=== PATIENT | female | born 1985 ===

== ENCOUNTER 2017-07-26 14:50 | Emergency (ER) | payer OTHER ==
[2017-07-26 14:53] VITALS: BMI 36.3
[2017-07-26 14:57] VITALS: RESP 18; TEMP 98.5; O2SAT 97
[2017-07-26 15:56] VITALS: BP 118/74; PULSE 94
--- NOTE | 2017-07-26 16:25 | ED PDOC ---
Arrival/HPI - General Historian: Patient - General Chief Complaint: Eye Problem Time Seen by Provider: 07/26/17 15:48 - History of Present Illness Narrative History of Present Illness (Text): 07/26/17 16:09 32yr old female, presents today with left eye redness, pruritis and irritation. Pt states she has history of allergies to cats, dogs, pollen, etc and is getting allergy shots. Pt states since she became her allergies have been horrible. pt states she woke up today with itchy, tearing eye. pt denies blurry vision. denies fever/chills. denies trauma or injury. pt states she has been trying to avoid rubbing her eyes. (Cynthia Jung) Past Medical History - Provider Review Nursing Documentation Reviewed: Yes - Travel History Have you recently traveled outside [place] w/in the past 3 mons?: No - Infectious Disease Hx of Infectious Diseases: None - Tetanus Immunization Tetanus Immunization: Up to Date - Past Medical History Past Medical History: No Previous - Pulmonary Hx Asthma: Yes - Psychiatric Hx Depression: Yes Hx Emotional Abuse: No Hx Physical Abuse: No Hx Substance Use: No Other/Comment: ADD - Surgical History Hx Section: Yes (x2) - Anesthesia Hx Anesthesia: Yes Hx Anesthesia Reactions: No Hx Malignant Hyperthermia: No - Suicidal Assessment Feels Threatened In Home Enviroment: No Family/Social History - Physician Review Nursing Documentation Reviewed: Yes Family/Social History: Unknown Family HX Smoking Status: Former Smoker Hx Alcohol Use: Yes Hx Substance Use: No Hx Substance Use Treatment: No Allergies/Home Meds Allergies/Adverse Reactions: Allergies No Known Allergies Allergy (Verified 08/26/14 21:55) Home Medications: Home Meds Medication Instructions Recorded Confirmed Venlafaxine [Effexor XR] 37.5 mg PO DAILY 03/25/14 07/26/17 Aspirin [Adult Low Dose Aspirin EC] 1 tab PO DAILY 07/26/17 07/26/17 Budesonide/Formoterol Fumarate 2 puff IH BID 07/26/17 07/26/17 [Symbicort 160-4.5 Mcg Inhaler] Multivit/Folic Acid/I 1 tab PO DAILY 07/26/17 07/26/17 [] Review of Systems - Review of Systems Constitutional: absent: Fatigue, Fevers Eyes: Other (eye irritation). absent: Vision Changes, Photophobia, Eye Pain ENT: absent: Sore Throat, Sinus Congestion Respiratory: absent: SOB, Cough Cardiovascular: absent: Chest Pain, Palpitations Gastrointestinal: absent: Abdominal Pain, Diarrhea, Nausea, Vomiting Genitourinary Female: absent: Dysuria Musculoskeletal: absent: Arthralgias, Back Pain, Neck Pain Skin: Pruritis (left eye) Neurological: absent: Headache, Dizziness Psychiatric: absent: Anxiety, Depression Physical Exam Vital Signs Reviewed: Yes Temperature: Afebrile Blood Pressure: Normal Pulse: Regular Respiratory Rate: Normal Appearance: Positive for: Well-Appearing, Non-Toxic, Comfortable Pain Distress: None Mental Status: Positive for: Alert and Oriented X 3 - Systems Exam Head: Present: Atraumatic Pupils: Present: PERRL Extroacular Muscles: Present: EOMI Conjunctiva: Present: Other (chemosis noted to left eye, no corneal abrasion or ulceration noted. no hyphema, + conjunctival swelling to the lateral aspect. ) Mouth: Present: Moist Mucous Membranes Respiratory/Chest: Present: Clear to Auscultation Cardiovascular: Present: Regular Rate and Rhythm Neurological: Present: GCS=15 Skin: Present: Warm, Dry, Normal Color Psychiatric: Present: Alert, Oriented x 3 Medical Decision Making ED Course and Treatment: 07/26/17 16:33 Patient is nontoxic well appearing in no distress Visual acuity within normal limits Left eye; minimal Conjunctival injection noted, no corneal abrasion/ ulceration / or dye uptake noted. PERRLA, extraocular muscles intact. no periorbital edema or erythema noted. there is small amount of conjunctival edema noted to lateral aspect of conjunctiva of left eye. benadryl given po. will d/c pt home on tobramycin and bendryl; advised f/u with eye doctor tomorrow. advised immediate return if symptoms worsen, persist or if new symptoms develop. Patient verbalizes understanding of discharge instructions and need for immediate followup. Impression: chemosis of left eye Tobrex: 2 drops in the affected eye 4 times daily benadryl every 6 hours as needed for itch. Followup with the eye doctor within the next 2 days Return immediately if symptoms worsen persist or if new symptoms develop; blurry vision, worsening eye pain, worsening redness or any other concerning symptoms develop. Follow up with the primary care physician within the next 2 days (Azoia, Cynthia T) I was available for consultation during PA evaluation. The chart was reviewed by me, and I agree with disposition. The documented history was done by the physician bus greaser. The documented physical exam was done by the physician bus greaser. The documented procedures were done by the physician bus greaser. (Roger Gamboa) - Medication Orders Current Medication Orders: Discontinued Medications Diphenhydramine HCl (Benadryl) 50 mg PO ONCE ONE Stop: 07/26/17 16:04 Last Admin: 07/26/17 16:22 Dose: 50 mg Disposition/Present on Arrival - Present on Arrival Any Indicators Present on Arrival: No History of DVT/PE: No History of Uncontrolled Diabetes: No Urinary Catheter: No History of Decub. Ulcer: No History Surgical Site Infection Following: None - Disposition Have Diagnosis and Disposition been Completed?: Yes Disposition Time: 16:07 Patient Plan: Discharge - Disposition Diagnosis: Chemosis of conjunctiva Disposition: HOME/ ROUTINE Condition: GOOD Additional Instructions: benadryl every 6 hours as needed for itch/swelling cold compresses to affected eye Eliminate the irritant Follow up with the eye doctor within the next 2 days Follow up with the primary care physician within the next 2 days. return immediately if symptoms worsen, persist or if new symptoms develop. Prescriptions: DiphenhydrAMINE [Benadryl] 25 mg PO Q6H #20 cap Tobramycin 0.3% [Tobramycin 5 Ml] 2 drop OS QID #1 bottle Referrals: Shailesh Elliott MD [Primary Care Provider] - Follow up with primary Alistair Schmitt MD [Staff Provider] - Follow up with primary Forms: [employer] (Kinyarwanda), WORK NOTE
== END 2017-07-26 16:10 | disposition home or self-care (01) ==
LOC: ED 14:50
DX: H11.422 Conjunctival edema, left eye (principal)